=== PATIENT | male | born 1990 | race Caucasian/White ===

== ENCOUNTER 2019-05-07 13:50 | Emergency (ER) | payer SELFPAY ==
[~2019-05-07] VITALS: Ht 165.1 cm; Wt 117.0 kg
[2019-05-07 14:12] VITALS: BP 148/68; Ht 165.1 cm; Wt 117.0 kg
[2019-05-07 15:17] LABS: microscopic required? NO
[2019-05-07 15:40] LABS: urine erythrocyte NEGATIVE (NEGATIVE)
== END 2019-05-07 15:15 | disposition home or self-care (01) ==
LOC: ED 13:50
PROVIDERS: Specialist
DX: N47.1 Phimosis (principal); N39.0 Urinary tract infection, site not specified